=== PATIENT | female | born 1995 | race Caucasian/White ===

== ENCOUNTER 2017-09-19 16:43 | Outpatient (CLI) | payer SELFPAY ==
[2017-10-13 10:20] LABS: CANDIDA SPECIES DNA PROBE NEGATIVE; GARDNERELLA VAGINALIS POSITIVE
== END 2017-09-19 16:44 ==
LOC: LABRHC 16:43
PROVIDERS: ATTEND Physician Assistant
DX: N89.8 Other specified noninflammatory disorders of vagina (principal)
CPT/HCPCS: 87480; 87491; 87510; 87591; 87798